=== PATIENT | female | born 1985 | race Two or more races ===

== ENCOUNTER → 2017-01-07 | Outpatient (CLI) | payer OTHER ==
--- NOTE | ~2017-01-07 | US17 ---
[facility] A Service of [facility] & [facility] RADIOLOGY TEXT RESULTS PATIENT: ARNEL HO LOCATION: [facility] : 89 UNIT #: [id number] AGE: [address]: OPAL RESENDEZ APRN SEX: F ORDER DR: [id number] [facility] [address] [place], [place] [address] [id number] O MR#: [id number] Acc #: [id number] NAME: ARNEL HO : 1985 SEX: F STUDY DATE/TIME: 01/07/2017 15:22 UNIT: [facility] ROOM: STUDY DESCRIPTION: US Breast Bilateral Attending Physician: Nevaeh Resendez M.D. Referring Physician: Nevaeh Resendez M.D. Ordering Physician: Nevaeh Resendez M.D. Primary Care Physician: Kirby Junior M.D. MEDICAL IMAGING REPORT This report is preliminary unless electronic signature is present EXAM Targeted ultrasound of the right and left breasts, 01/07/2017. INDICATIONS 31-year-old female complaining of bilateral breast pain for the past 2 months. She denies a palpable abnormality on either side. Patient denies nipple discharge. No personal or family history of breast cancer. TECHNIQUE Targeted ultrasound of the right and left breast was performed in the area of patient pain symptoms. COMPARISON We have no comparisons. FINDINGS The patient was initially scanned by the technologist and then rescanned in my presence. RIGHT BREAST: The patient complained of pain symptoms from the 7 o'clock through the 10 o'clock positions on the right. The breast tissue at these clock positions is dense, but there is no distinct cystic or solid mass or persistent shadowing abnormality. In the 10 o'clock position, there is a more focally heterogeneous area of dense breast tissue or perhaps a small debris-filled duct. There is no internal color flow or focal internal mass. Imaging of the subareolar right breast was also performed which appeared unremarkable. The patient denies nipple discharge. Imaging findings are benign. LEFT BREAST: The patient complained of pain symptoms in the left breast spanning the 3 o'clock through 5 o'clock positions. Similar to the contralateral right breast, the breast tissue is dense, but there is no distinct cystic or solid mass or persistent shadowing abnormality. [facility]. [facility] A Service of [facility] RADIOLOGY TEXT RESULTS PATIENT: ARNEL HO LOCATION: [facility] : 89 UNIT #: [id number] AGE: [address]: OPAL RESENDEZ UNDRAPED ARTIST MODEL SEX: F ORDER DR: Imaging findings are benign. Absent new or worsening symptoms in either breast, clinical considerations should determine additional imaging at this time. The patient was encouraged to return for additional imaging if her symptoms worsened or a new palpable abnormality developed. She voiced understanding and agreement. Mammography was not thought to offer additional diagnostic benefit based on the patient complaint and imaging findings with ultrasound and, therefore, was not performed. IMPRESSION 1. Targeted ultrasound of the areas of breast pain in the right breast demonstrate benign findings. 2. Targeted ultrasound of the areas of breast pain in the left breast are also benign/negative. 3. Clinical considerations to determine additional imaging at this point. See discussion above. Patients over the age of 40 are entered into a reminder system with target due date for the next mammogram. A result letter will also be sent to the patient. BIRADS category 2 Dictated by... Dipak Haines M.D. THIS IS AN ELECTRONICALLY VERIFIED REPORT Dipak Haines M.D. at 01/08/2017 7:41 AM MARJORIE/royal TD: 01/07/2017 18:37 JOB #: [id number] MEDICAL IMAGING REPORT Page 1 of 1 COPY
== END | disposition home or self-care (01) ==
LOC: CWCC 09:30
DX: N64.4 Mastodynia (principal)
CPT/HCPCS: 76641